=== PATIENT | female | born 1950 | race Caucasian/White ===

== ENCOUNTER → 2020-04-11 16:59 | Outpatient (CLI) | payer BC, SELFPAY ==
--- NOTE | ~2020-04-11 | MM_ITS ---
EXAMINATION: MM screening [facility] BI w daryl HISTORY: Screening mammogram TECHNIQUE: Craniocaudal and mediolateral oblique 3-D tomosynthesis images were obtained and synthetic 2-D images were generated. Bilateral rotated lateral cc views. CAD analysis was submitted and interp reted. COMPARISON: 06/24/2010, 06/08/2009 bilateral digital screening mammogram examinations BREAST PARENCHYMAL COMPOSITION: There are scattered areas of fibroglandular density. FINDINGS: Numerous benign microcalcifications are scattered in both breasts. There is no evidence of suspicious mass, calcification, or architectural distortion to suggest malignancy in either breast. T here has been no suspicious interval change. IMPRESSION: 1. No mammographic evidence of malignancy. 2. Recommend routine screening mammography in one year. BI-RADS Category 2: Benign finding(s). Reviewed, dictated and finalized at location A. GER LEAN
== END ==
PROVIDERS: PCP Nurse Practitioner Family; Visit Provider Nurse Practitioner Family
DX: Z12.31 Encounter for screening mammogram for malignant neoplasm of breast (principal)
CPT/HCPCS: 77063; 77067

== ENCOUNTER → 2020-09-09 17:36 | Outpatient (CLI) | payer BC, SELFPAY ==
--- NOTE | ~2020-09-09 | DEXA_ITS ---
Bone Density Report Name: Lucia Tomlin Age: 69 Sex: Female Ethnicity: White Date of : 1950 Indication: postmenopausal osteoporosis; height loss; Referring Provider: Sarah, Edison Lee Study: Bone densitometry was performed. Exam Date: September 09, 2020 Accession number: [id number] Bone Density: Region BMD T-score Z-score Classification AP Spine (L1-L4) 0.637 -3.7 -1.8 Osteoporosis Femoral Neck (Left) 0.387 -4.2 -2.5 Osteoporosis Total Hip (Left) 0.407 -4.4 -3.0 Osteoporosis Femoral Neck (Right) 0.522 -2.9 -1.3 Osteoporosis Total Hip (Right) 0.560 -3.1 -1.7 Osteoporosis Total Hip Mean 0.484 -3.8 -2.4 Osteoporosis World Health Organization criteria for BMD impression classify patients as: Normal (T-score at or above -1.0), Osteopenia (T-score between -1.0 and -2.5), or Osteoporosis (T-score at or below -2.5). 10-year Fracture Risk: FRAX not reported because: Some T-score for Spine Total or Hip Total or Femoral Neck at or below -2.5 Previous Exams: Region Exam Age BMD T-score BMD Change BMD Change Date g/cm2 vs Baseline vs Previous AP Spine(L1-L4) 09/09/2020 69 0.637 -3.7 -0.161* -0.016 08/03/2017 66 0.653 -3.6 -0.145* -0.035* 12/28/2014 64 0.688 -3.3 -0.110* -0.024* 03/15/2011 60 0.712 -3.0 -0.086* -0.041* 07/08/2009 58 0.753 -2.7 -0.045* -0.045* 02/06/2007 56 0.798 -2.3 Total Hip(Left) 09/09/2020 69 0.407 -4.4 -0.239* -0.115* 08/03/2017 66 0.523 -3.4 -0.123* -0.046* 12/28/2014 64 0.568 -3.1 -0.078* -0.037* 03/15/2011 60 0.606 -2.8 -0.041* -0.041* 02/06/2007 56 0.646 -2.4 Total Hip(Right) 09/09/2020 69 0.560 -3.1 -0.156* -0.042* 08/03/2017 66 0.602 -2.8 -0.114* -0.094* 12/28/2014 64 0.696 -2.0 -0.020 0.024 03/15/2011 60 0.672 -2.2 -0.044* -0.044* 02/06/2007 56 0.716 -1.9 *Denotes significance at 95% confidence level, LSC for AP Spine = 0.022 g/cm2, LSC for Total Hip = 0.027 g/cm2 Clinical Information Provided by Patient: Has used the following medications: Vitamin D, MTV Patient maximum height was 67.5 Menopause Age: 56 No regular weight bearing exercise Drinks caffeinated beverages Onset of menses at age 14 Number of children 4 Impression: The patient has
== END ==
PROVIDERS: PCP Nurse Practitioner Family; Visit Provider Chiropractor
DX: M81.0 Age-related osteoporosis without current pathological fracture (principal)
CPT/HCPCS: 77080

== ENCOUNTER 2023-02-18 19:17 | Emergency (ER) | payer MEDICARE, SELFPAY ==
[2023-02-18 19:20] VITALS: BP 159/84; PULSE 88; RESP 17; TEMP 36.6; O2SAT 99
--- NOTE | 2023-02-18 19:37 | ECG_ITS ---
Measurements Intervals [place] Rate: 72 P: 4 TN: 112 QRS: 75 QRSD: 74 T: 78 QT: 368 QTc: 404 Interpretive Statements SINUS RHYTHM WITH SHORT TN INTERVAL NO PREVIOUS ECG AVAILABLE FOR COMPARISON Electronically Signed On 02-19-2023 15:56:07 CDT by Gaudencio Swanson M.D.
[2023-02-18 20:10] LABS: Basophils Percent Auto 0.4 % (0.2-1.2); Eosinophils Absolute Auto 0.1 K/mm3 (0-0.3); Eosinophils Percent Auto 1.6 % (0-4.4); Hematocrit 36.5 % (37.0-47.0); Immature Platelet Fraction Pct 8.4 % (0.9-11.2); Mean Corpuscular HGB Conc 32.9 g/dl (32-36); Mean Corpuscular Hemoglobin 30.9 pg (26-34); Mean Corpuscular Volume 94.1 fl (80-100); Mean Platelet Volume 11.9 fl (7.4-10.4); Monocytes Absolute Auto 0.4 K/mm3 (0.1-0.6); Neutrophils Absolute Auto 3.1 K/mm3 (1.3-6.7); Platelet Count Result 135 k/mm3 (150-375); Red Blood Count 3.88 M/mm3 (4.2-5.4); Red Cell Distribution Width 13.2 % (11.5-14.5); White Blood Count 4.5 K/mm3 (4.5-10.0)
[2023-02-18 20:20] LABS: Alanine Aminotransferase 27 U/L (6-35); Albumin Level 4.2 g/dL (3.5-5.1); Alkaline Phosphatase 55 U/L (38-126); Anion Gap 6 mmol/L (8-16); Aspartate Amino Transferase 36 U/L (14-36); Bilirubin,Total 0.5 mg/dL (0.2-1.3); Blood Urea Nitrogen 15 mg/dL (7-17); Calcium 9.1 mg/dL (8.4-10.2); Carbon Dioxide 27 mmol/L (22-30); Chloride 102 mmol/L (98-107); Estimated CRCL calculation 58 ml/min; Estimated Glomerular Filt Rate > 60; Glucose 91 mg/dL (65-110); Potassium 3.6 mmol/L (3.4-5.0); Sodium 135 mmol/L (137-145)
[2023-02-18 20:30] LABS: Appearance Urine Clear (Clear); Bilirubin Urine Negative (Negative); Blood Urine Negative (Negative); Color Urine Yellow (Yellow); Glucose Urine UA Negative (Negative); Ketones Urine Negative (Negative); Leukocyte Esterase Ur 1+ LEU/UL (Negative); Nitrate Urine Negative (Negative); Protein Urine Negative (Negative); Specific Grav Ur 1.015 (1.001-1.035); Urobilinogen Urine 0.2 mg/dL (<2.0)
[2023-02-18 20:32] LABS: Troponin I < 0.012 ng/mL (0.000-0.034)
[2023-02-18 20:36] LABS: Bacteria Urine None Seen /hpf; Non Pathogenic Casts 0-2; RBC Urine 0-2 /hpf (0-2); Squamous Epithelial Cell Urine None seen /hpf (Few)
[2023-02-18 20:39] LABS: Add Urine Microscopic? YES
--- NOTE | 2023-02-18 20:51 | ED.GENADULT ---
HPI - General Adult General Chief complaint: Recheck/Abnormal Lab/Rx Stated complaint: htn Time Seen by Provider: 02/18/23 19:31 History of Present Illness HPI narrative: Patient presents to the emergency department with concern for her blood pressure. She has not seen her primary care doctor in 3 years. Prior to that she did not have hypertension. A [facility] home check saw her couple weeks ago and told her that her blood pressure was low. She believes her systolic was 105. Since then she has been checking it. The past couple days it has been elevated up to 180 systolic. She has an appointment with her primary care physician in the morning. Denies all other symptoms including vision changes headache confusion. Overall she is healthy except for a diagnosis of Raynaud's and bilateral lower extremity edema that is chronic. Patient is very pleasant and in no distress Related Data Allergies Allergy/AdvReac Type Severity Reaction Status Date / Time No Known Drug Allergies Allergy Unknown Verified 12/13/09 14:22 Review of Systems Review of Systems: Review of systems negative except for what is documented in the HPI Exam Narrative: GENERAL: Well-appearing, well-nourished, and in no acute distress. HEAD: Normocephalic, atraumatic. EYES: PERRLA and EOMI. ENT: Nares clear, no rhinorrhea or epistaxis. Mucous membranes moist. NECK: Supple. CHEST: Clear to auscultation. No respiratory distress. HEART: Regular rate and rhythm. ABDOMEN: Soft, nontender, nondistended. EXTREMITIES: Normal range of motion. No edema. SKIN: Warm, dry, no rash. NEURO: No focal deficits. Alert and oriented x3. PSYCH: Normal mood and affect. Course Vital Signs Vital signs: Vital Signs Temperature 36.6 C 02/18/23 19:20 Pulse Rate 88 02/18/23 19:20 Respiratory Rate 17 02/18/23 19:20 Blood Pressure 159/84 H 02/18/23 19:20 Pulse Oximetry 99 02/18/23 19:20 Oxygen Delivery Room Air 02/18/23 19:20 Temperature 36.6 C 02/18/23 19:20 Pulse Rate 88 02/18/23 19:20 Respiratory Rate 17 02/18/23 19:20 Blood Pressure 159/84 H 02/18/23 19:20 Pulse Oximetry 99 02/18/23 19:20 Oxygen Delivery Room Air 02/18/23 19:20 Medical Decision Making MDM Narrative Medical decision making narrative: Blood pressures have been slightly elevated but not high enough to start her on any antihypertensive medication. She has an appointment with her primary care in the morning. Labs including CMP troponin and CBC were ordered, evaluated by myself and grossly unremarkable. EKG ordered and reviewed by myself. Sinus rhythm rate 72 no signs of acute ischemia Vital Signs Vital Signs: Vital Signs Temperature 36.6 C 02/18/23 19:20 Pulse Rate 88 02/18/23 19:20 Respiratory Rate 17 02/18/23 19:20 Blood Pressure 159/84 H 02/18/23 19:20 Pulse Oximetry 99 02/18/23 19:20 Oxygen Delivery Room Air 02/18/23 19:20 Temperature 36.6 C 02/18/23 19:20 Pulse Rate 88 02/18/23 19:20 Respiratory Rate 17 02/18/23 19:20 Blood Pressure 159/84 H 02/18/23 19:20 Pulse Oximetry 99 02/18/23 19:20 Oxygen Delivery Room Air 02/18/23 19:20 Lab Data 02/18/23 19:59 02/18/23 19:59 Labs: Lab Results 02/18/23 02/18/23 Range/Units 19:59 20:19 WBC 4.5 (4.5-10.0) K/mm3 RBC 3.88 L (4.2-5.4) M/mm3 Hgb 12.0 (12.0-15.0) g/dL Hct 36.5 L (37.0-47.0) % MCV 94.1 (80-100) fl MCH 30.9 (26-34) pg MCHC 32.9 (32-36) g/dl RDW 13.2 (11.5-14.5) % Plt Count 135 L (150-375) k/mm3 MPV 11.9 H (7.4-10.4) fl Immature Gran % (Auto) 0.0 (0-0.5) % Neut % (Auto) 70.0 (45.5-73.1) % Lymph % (Auto) 20.0 (18.3-44.2) % [place] % (Auto) 8.0 (2.6-8.5) % Eos % (Auto) 1.6 (0-4.4) % Baso % (Auto) 0.4 (0.2-1.2) % Lymph # (Auto) 0.90 (0.9-3.2) K/mm3 [place] # (Auto) 0.4 (0.1-0.6) K/mm3 Eos # (Auto) 0.1 (0-0.3) K/mm3 Baso # (Auto)
[2023-02-18 21:18] VITALS: BP 138/79; PULSE 73; RESP 20; O2SAT 99
== END 2023-02-18 21:20 | disposition home or self-care (01) ==
PROVIDERS: Emergency Provider Emergency Medicine; PCP Nurse Practitioner Family
DX: I10 Essential (primary) hypertension (principal); I73.00 Raynaud's syndrome without gangrene; R60.0 Localized edema; R82.90 Unspecified abnormal findings in urine
CPT/HCPCS: 36415; 80053; 81001; 84484; 85025; 85055; 87086; 93005; 99284

== ENCOUNTER 2023-07-03 09:05 | Day surgery (SDC) | payer MEDICARE, SELFPAY ==
[2023-05-27 11:13] VITALS: BMI 16.9
[2023-06-12 13:28] VITALS: BMI 16.9
--- NOTE | 2023-07-03 08:03 | WPDANESEPPF ---
Anes - Initial Pre Proc Eval Procedure: Operation Date: 07/03/23 11:00 Proposed Procedures p Screening Colonoscopy - Gil Gonzalez MD Date/Time: 07/03/23 08:03 Surgeon: Gil Gonzalez MD Pre Op Diagnosis: Screening of Neoplasm of Colon Patient Data Age: 72 Gender: F Height: 1.68 m Weight: 47.6 kg Allergies Allergy/AdvReac Type Severity Reaction Status Date / Time No Known Allergies Allergy Verified 07/03/23 09:35 Home Medications Medication Instructions Recorded Confirmed Type B Complex 1 tablet PO DAILY 06/12/23 07/03/23 History Biostress 600 with Zinc 1 tablet PO DAILY 06/12/23 07/03/23 History Eye-Vites 1 tablet PO DAILY 06/12/23 07/03/23 History Iron (ferrous sulfate) 1 tablet PO DAILY 06/12/23 07/03/23 History cholecalciferol (vitamin D3) 1 tablet PO DAILY 06/12/23 07/03/23 History Patient hx anesthesia problems: none Family hx anesthesia problems: none Results Review: All pre-operative results and documents have been reviewed as part of the pre-operative evaluation. [facility] Past Medical History Medical History (Updated 07/03/23 @ 10:08 by Gil Gonzalez MD) Glaucoma Hx of melanoma of skin Osteoporosis Raynaud disease Social History Social History Living arrangements: alone Spiritual care concerns: No Anes - Eval Final PreProcedure Day of Procedure 07/03/23 08:03 Patient weight: normal Heart: regular rate and rhythm Lungs: clear to auscultation and normal air movement Airway: Mallampati scale class II Neurological: alert and oriented Last oral intake: >/= 8 hours ASA classification: II Emergent: no Anesthetic plan: proceed Anesthesia type and monitoring: general GIVS and standard monitoring Results Review: All pre-operative results and documents have been reviewed as part of the pre-operative evaluation. Informed Consent: The patient's anesthetic plan and its attendant risks and benefits were discussed with the patient/family/POA. Questions were solicited and answers provided to the satisfaction of the patient/family/POA.
[2023-07-03 09:37] VITALS: BP 142/78; PULSE 81; RESP 20; TEMP 37.2; O2SAT 100; BMI 16.7
[2023-07-03] MEDS: LACTATED RINGERS 1,000 ML 150 ML IV CONT (10:06)
--- NOTE | 2023-07-03 10:06 | PM.HPGS ---
History of Present Illness History of Present Illness Consent: Risks, benefits, and alternatives have been discussed and questions answered. Patient agrees to proceed with procedure. Chief complaint: Screening of Neoplasm of Colon Narrative: Lucia Tomlin is a 72 year old female presents for screening colonoscopy. Patient was found to have a benign adenomatous colon polyp by previous colonoscopy in 2009. Performed [address] Garcia. Patient reports that her current weight appetite and bowel movements are normal. She denies abdominal pain. She has had no bleeding. Patient returns today for screening colonoscopy. Review of Systems Review of Systems: Review of systems is noncontributory. [facility] Past Medical History Medical History (Updated 07/03/23 @ 10:08 by Gil Gonzalez MD) Glaucoma Hx of melanoma of skin Osteoporosis Raynaud disease Social History Social History Living arrangements: alone Spiritual care concerns: No Meds Home Medications and Allergies Home Medications Medication Instructions Recorded Confirmed Type B Complex 1 tablet PO DAILY 06/12/23 07/03/23 History Biostress 600 with Zinc 1 tablet PO DAILY 06/12/23 07/03/23 History Eye-Vites 1 tablet PO DAILY 06/12/23 07/03/23 History Iron (ferrous sulfate) 1 tablet PO DAILY 06/12/23 07/03/23 History cholecalciferol (vitamin D3) 1 tablet PO DAILY 06/12/23 07/03/23 History Allergies Allergy/AdvReac Type Severity Reaction Status Date / Time No Known Allergies Allergy Verified 07/03/23 09:35 Vital Signs Vital Signs - 24 hr 07/03/23 09:37 Temperature 99 F Pulse Rate 81 Respiratory Rate 20 Blood Pressure 142/78 H Pulse Oximetry 100 Oxygen Delivery Room Air Exam Narrative: Physical exam reveals patient to be alert. Vital signs stable. HEENT exam is unremarkable. Patient is anicteric. Lungs are clear to auscultation and to percussion. Is without murmur or extra sounds. Abdomen bowel sounds are present soft nontender with no organomegaly. Digital external rectal exam is normal. Assessment and Plan Assessment and plan (1) History of colon polyps: Code(s): Z86.010 - Personal history of colonic polyps Status: Acute Assessment and Plan: Presents for screening colonoscopy. She does have a distant history of benign colon polyp.
[2023-07-03 10:57] VITALS: BP 97/58; PULSE 82; RESP 20; O2SAT 98
[2023-07-03 11:07] VITALS: BP 128/78; PULSE 70; RESP 20; O2SAT 100
[2023-07-03 11:17] VITALS: BP 133/69; PULSE 78; RESP 20; O2SAT 100
--- NOTE | 2023-07-03 12:30 | SUR.PHASEII ---
1135 [facility]
--- NOTE | 2023-07-03 13:21 | WPDANESPN ---
Anes - Prog Note Post-Op Date/Time: 07/03/23 13:21 Cardiovascular status: normal Respiratory status: normal Airway patency: baseline Mental status: baseline Post-Op hydration status: normal Vital Signs: Last Vital Signs Temp 37.2 C 07/03/23 09:37 Pulse 78 07/03/23 11:17 Resp 20 07/03/23 11:17 BP 133/69 07/03/23 11:17 Pulse Ox 100 07/03/23 11:17 O2 Del Method Room Air 07/03/23 11:17 Pain Score (VAS): 0 I/O: Intake & Output 07/02/23 07/03/23 07/03/23 23:59 07:59 15:59 Intake Total 700 Balance 700 Post-procedural complaints: none Patient Feedback: Patient satisfied with anesthetic care. Other Findings: Patient vital signs back to baseline. Patient denies nausea and vomiting. Patient's pain under control. Patient OK for discharge.
== END 2023-07-03 12:07 | disposition home or self-care (01) ==
PROVIDERS: PCP Family Medicine; Visit Provider Internal Medicine Gastroenterology
PROC: 0DJD8ZZ Inspection of Lower Intestinal Tract, Via Natural or Artificial Opening Endoscopic (ICD-10-PCS; CPT 45378; principal; 2023-07-03 11:00)
DX: Z12.11 Encounter for screening for malignant neoplasm of colon (principal)
CPT/HCPCS: 45378

== ENCOUNTER 2023-08-10 08:53 | Outpatient (CLI) | payer MEDICARE, SELFPAY ==
--- NOTE | ~2023-08-10 | MM_ITS ---
EXAMINATION: MM screening [facility] BI w daryl HISTORY: Screening TECHNIQUE: Craniocaudal and mediolateral oblique 3-D tomosynthesis images were obtained and synthetic 2-D images were generated. CAD analysis was submitted and interpreted. COMPARISON: Comparison to multiple prior studies sequentially, with oldest reviewed study dated 06/24. BREAST PARENCHYMAL COMPOSITION: Not dense: There are scattered areas of fibroglandular density. FINDINGS: There is no evidence of suspicious mass, calcification, or architectural distortion to sugg est malignancy in either breast. There has been no suspicious interval change. IMPRESSION: 1. No mammographic evidence of malignancy. 2. Recommend routine screening mammography in one year. BI-RADS Category 1: Negative Reviewed, dictated and finalized at location A.
== END 2023-08-10 08:54 ==
LOC: MICIMG 08:58
PROVIDERS: PCP Chiropractor; Visit Provider Family Medicine
DX: Z12.31 Encounter for screening mammogram for malignant neoplasm of breast (principal)
CPT/HCPCS: 77063; 77067

== ENCOUNTER 2023-08-21 07:45 | Outpatient (CLI) | payer MEDICARE, SELFPAY ==
--- NOTE | ~2023-08-21 | DEXA_ITS ---
Bone Density Report Name: SOPHIE ALLEN Age: 72 Sex: Female Ethnicity: White Date of : 1950 Indication: postmenopausal; screening for osteoporosis; height loss; cancer; Referring Provider: BETTY, KRISTINE Marlow Study: Bone densitometry was performed. Exam Date: August 21, 2023 Accession number: [id number] Bone Density: Region BMD T-score Z-score Classification AP Spine(L1-L4) 0.581 -4.2 -2.1 Osteoporosis Femoral Neck (Left) 0.413 -3.9 -2.1 Osteoporosis Total Hip (Left) 0.478 -3.8 -2.3 Osteoporosis Femoral Neck (Right) 0.525 -2.9 -1.1 Osteoporosis Total Hip (Right) 0.552 -3.2 -1.6 Osteoporosis Total Hip Mean 0.515 -3.5 -2.0 Osteoporosis World Health Organization criteria for BMD impression classify patients as: Normal (T-score at or above -1.0), Osteopenia (T-score between -1.0 and -2.5), or Osteoporosis (T-score at or below -2.5). 10-year Fracture Risk: FRAX not reported because: Some T-score for Spine Total or Hip Total or Femoral Neck at or below -2.5 Clinical Information Provided by Patient: Has used the following medications: Vitamin D, MULTI Has the following medical conditions: Cancer Patient maximum height was 67.5 Menopause Age: 54 No regular weight bearing exercise Drinks caffeinated beverages Onset of menses at age 14 Number of children 4 Impression: The patient has osteoporosis, based on the Total Spine T-score. Discussion: HIGH RISK OF FRACTURE. BONE DENSITY IS UNDESIRABLY LOW AT ONE OR MORE SKELETAL SITES, CONSISTENT WITH OSTEOPOROSIS. ALSO, BONE DENSITY IS LOWER THAN EXPECTED FOR AGE AND SEX AT ONE OR MORE SKELETAL SITES; RECOMMEND A DILIGENT SEARCH FOR SECONDARY CAUSES OF BONE LOSS. This patient's lowest T-score meets the World Health Organization's (WHO) criteria for osteoporosis at one or more sites (T-score -2.5 or below). In untreated patients, the risk of osteoporotic fracture increases approximately two-fold for each 1.0 SD decrease in T-score. Low bone density is not the only risk factor for fracture; also consider factors such as patient's age, frailty or poor health, risk of falling, risk of injury, previous osteoporotic fracture, family history of osteoporosis, cigarette smoking, low body weight, etc. Not everyone with low bone mineral density has osteoporosis; osteomalacia and other metabolic bone disorders should also be considered. Patients who have osteoporosis should be evaluated for specific diseases and conditions (secondary causes) that may cause or contribute to bone loss. The [place] [employer]ocrinologists (AACE) and National Osteoporosis Foundation (NOF) recommend pharmacologic intervention for all postmenopausal women whose T-score is in this range. Also, this patient's bone mineral density is below the range considered normal fo
== END 2023-08-21 07:46 | disposition home or self-care (01) ==
PROVIDERS: PCP Chiropractor; Visit Provider Family Medicine
DX: M81.0 Age-related osteoporosis without current pathological fracture (principal)
CPT/HCPCS: 77080

== ENCOUNTER 2024-09-26 10:27 | Outpatient (CLI) | payer MEDICARE, SELFPAY ==
--- NOTE | ~2024-09-26 | MM_ITS ---
EXAMINATION: MM screening buzz BI w daryl HISTORY: Screening TECHNIQUE: Craniocaudal and mediolateral oblique 3-D tomosynthesis images were obtained and synthetic 2-D images were generated. CAD analysis was submitted and interpreted. COMPARISON: Comparison to multiple prior studies sequentially, with oldest reviewed study dated 03/15. BREAST PARENCHYMAL COMPOSITION: Dense: The breasts are heterogeneously dense, which may obscure small masses FINDINGS: There is no evidence of suspicious mass, calcification, or architectural distortion to sugg est malignancy in either breast. There has been no suspicious interval change. IMPRESSION: 1. No mammographic evidence of malignancy. 2. Recommend routine screening mammography in one year. BI-RADS Category 1: Negative Reviewed, dictated and finalized at location B.
--- OUTSIDE RECORDS SUMMARY | 2024-09-26 10:32 | XMS_ITS | Data Portability ---
Author Organization [facility] [employer], Main Office Address [address] [place] [address] Assessment No assessment recorded. Plan of Treatment Reminders Order Date Submit Date Provider Last Modified By Organization Details Last Modified Time Details Appointments None recorded. Lab TSH, serum or plasma 2022 023 [email or web address] [facility] (Lab), [address] [place], [address], 09:43:34 lipid panel, serum 2022 023 JOSE ARMANDO [facility] (Lab), [address] [place], [address], 09:13:53 urinalysis, complete 2022 023 [facility] (Lab), [address] [place], [address], 09:44:09 HbA1c (hemoglobin A1c), blood 2022 023 [facility] (Lab), [address] [place], [address], 09:44:27 CMP, serum or plasma 2022 023 [email or web address] [facility] (Lab), [address] [place], [address], 09:44:42 CBC 2022 023 [email or web address] [facility] (Lab), [address] [place], [address], 09:45:01 Referral gastroenter ologist referral - due for colonscopy Please call patient to schedule appointment . [email or web address] [facility], [address], [address], [place], [address], 4 16:08:04 Procedures None recorded. Surgeries None recorded. Imaging DEXA - *please call pt to schedule* [address] (Imaging), [address], [place], [address], 3 09:19:55 MAMMO, screening, digital, bilateral - *Please call pt to schedule* [address] - Breast Ctr, [address], [facility] [address], [place], [address], 3 09:19:32 Medication Orders None recorded. Patient TargetsNo targets recorded. Patient Instructions Encounter Date Encounter Id Patient Instructions Last Modified By Organization Details Last Modified Time 03/12/2023 [id number] fall risk assessment* Not available 03/28/2023 16:09:56 Reason for Referral Nurse Assistant Referral for Screening for malignant neoplasm of colon due for colonscopy Please call patient to schedule appointment. Referring Physician: Jaya Brito, Family Medicine, Encounter Date: 03/12/2023 Results Created Date Observation Date Name Description Value Unit Range Abnormal Flag Note LastModifiedBy Organization Detail LastModifiedTime 03/12/20 23 03/13/2023 COMP. METAB OLIC PANEL (14) glucose 94 mg/dL 70-99 Not Available [facility] ([facility]) [address] [facility], [place], [address], 03/13/2023 09:13:51 03/12/20 23 03/13/2023 COMP. METAB OLIC PANEL (14) BUN 13 mg/dL 8-27 Not Available [facility] ([facility]) [address] [facility] [place], [address], 03/13/2023 09:13:51 03/12/20 23 03/13/2023 COMP. METAB OLIC PANEL (14) creatinine 0.64 mg/dL 0.57-1 .00 Not Available [facility] ([facility]) [address] [facility], [place], [address], 03/13/2023 09:13:51 03/12/2003/13/2023 COMP. METAB OLIC PANEL (14) eGFR 95 mL/mi n/1.7 3 >59 Not Available [facility] ([facility]) [address] [facility], [place], [address], 03/13/2023 09:13:51 03/12/20 23 03/13/2023 COMP. METAB OLIC PANEL (14) BUN/creatini ne ratio 20 12-28 Not Available [facility] ([facility]) [address] [facility], [place], [address], 03/13/2023 09:13:51 03/12/20 23 03/13/2023 COMP. METAB OLIC PANEL (14) sodium 140 mmol/ L 134-14 4 Not Available [facility] ([facility]) [address] [facility], [place], [address], 03/13/2023 09:13:51 03/12/20 23 03/13/2023 COMP. METAB OLIC PANEL (14) potassium 4.1 mmol/ L 3.5-5. 2 Not Available [facility] ([facility]) [address] [facility], [place], [address], 03/13/2023 09:13:51 03/12/20 23 03/13/2023 COMP. METAB OLIC PANEL (14) chloride 100 mmol/ L 96-106 Not Available [facility] ([facility]) [address] [place], [place], [id number], 03/13/2023 09:13:51 03/12/20 23 03/13/2023 COMP. METAB OLIC PANEL (14) carbon dioxide, total 31 mmol/ L 20-29 above high normal Not Available [facility] ([facility]) [address] [place], [id number], 03/13/2023 09:13:51 03/12/20 23 03/13/2023 COMP. METAB OLIC PANEL (14) calcium 9.6 mg/dL 8.7-10 .3 Not Available [facility] ([facility]) [address] [place], [id number], 03/13/2023 09:13:51 03/12/20 23 03/13/2023 COMP. METAB OLIC PANEL (14) protein, total 6.9 g/dL 6.0-8. 5 Not Available [facility] ([facility]) [address] [place], [id number], 03/13/2023 09:13:51 03/12/20 23 03/13/2023 COMP. METAB OLIC PANEL (14) albumin 4.6 g/dL 3.9-4. 9 Not Available [facility] ([facility]) [address] [place], [id number], 03/13/2023 09:13:51 03/12/20 23 03/13/2023 COMP. METAB OLIC PANEL (14) globulin, total 2.3 g/dL 1.5-4. 5 Not Available [facility] ([facility]) [address] [place], [id number], 03/13/2023 09:13:51 03/12/20 23 03/13/2023 COMP. METAB OLIC PANEL (14) A/G ratio 2.0 1.2-2. 2 Not Available [facility] ([facility]) [address] [place], [id number], 03/13/2023 09:13:51 03/12/2003/13/2023 COMP. METAB OLIC PANEL (14) bilirubin, total 0.4 mg/dL 0.0-1. 2 Not Available [facility] ([facility]) [address] [place], [address], 03/13/2023 09:13:51 03/12/20 23 03/13/2023 COMP. METAB OLIC PANEL (14) alkaline phosphatase 62 IU/L 44-121 Not Available [facility]) [address], [place], [address], 03/13/2023 09:13:51 03/12/20 23 03/13/2023 COMP. METAB OLIC PANEL (14) AST (SGOT) 25 IU/L 0-40 Not Available [facility] ([facility]) [address] [place], [place], [id number], 03/13/2023 09:13:51 03/12/2003/13/2023 COMP. METAB OLIC PANEL (14) ALT (SGPT) 21 IU/L 0-32 Not Available [facility] ([facility]) [address] [place], [id number], 03/13/2023 09:13:51 03/12/2003/13/2023 UA/M W/RFL X CULTU RE, ROUTI NE specific gravity 1.013 1.005- 1.030 Not Available [facility] ([facility]) [address] [place], [id number], 03/13/2023 09:13:52 03/12/2003/13/2023 UA/M W/RFL X CULTU RE, ROUTI NE pH 6.5 5.0-7. 5 Not Available [facility] ([facility]) [address] [place], [id number], 03/13/2023 09:13:52 03/12/2003/13/2023 UA/M W/RFL X CULTU RE ROUTI NE urine-color Yellow yellow Not Available [facility] ([facility]) [address] [facility], [place], [address], 03/13/2023 09:13:52 03/12/2003/13/2023 UA/M W/RFL X CULTU RE, ROUTI NE appearance Clear clear Not Available [facility] ([facility]) [address] [facility], [place], [address], 03/13/2023 09:13:52 03/12/2003/13/2023 UA/M W/RFL X CULTU RE, ROUTI NE WBC esterase Negati ve negati ve Not Available [facility] ([facility]) [address] [facility], [place], [address], 03/13/2023 09:13:52 03/12/2003/13/2023 UA/M W/RFL X CULTU RE ROUTI NE protein Negati ve negati ve/tra ce Not Available [facility] ([facility]) [address] [facility], [place], [address], 03/13/2023 09:13:52 03/12/2003/13/2023 UA/M W/RFL X CULTU RE ROUTI NE glucose Negati ve negati ve Not Available [facility] ([facility]) [address] [place], [address], 03/13/2023 09:13:52 03/12/2003/13/2023 UA/M W/RFL X CULTU RE, ROUTI NE ketones Negati ve negati ve Not Available [facility] ([facility]) [address] [place], [address], 03/13/2023 09:13:52 03/12/2003/13/2023 UA/M W/RFL X CULTU RE, ROUTI NE occult blood Negati ve negati ve Not Available [facility] ([facility]) [address] [facility], [place], [address], 03/13/2023 09:13:52 03/12/2003/13/2023 UA/M W/RFL X CULTU RE, ROUTI NE bilirubin Negati ve negati ve Not Available [facility] ([facility]) [address] [facility], [place], [address], 03/13/2023 09:13:52 03/12/2003/13/2023 UA/M W/RFL X CULTU RE, ROUTI NE urobilinogen ,semi-qn 0.2 mg/dL 0.2-1. 0 Not Available [facility] ([facility]) [address] [facility], [place], [address], 03/13/2023 09:13:52 03/12/2003/13/2023 UA/M W/RFL X CULTU RE, ROUTI NE nitrite, urine Negati ve negati ve Not Available [facility] ([facility]) [address] [facility], [place], [address], 03/13/2023 09:13:52 03/12/2003/13/2023 UA/M W/RFL X CULTU RE, ROUTI NE microscopic examination Commen t Micro scopi c follo ws if indic ated. Not Available [facility] ([facility]) [address] [facility], [place], [address], 03/13/2023 09:13:52 03/12/2003/13/2023 UA/M W/RFL X CULTU RE, ROUTI NE microscopic examination See below: Micro scopi c was indic ated and was perfo rmed. Not Available [facility] ([facility]) [address] [place], [address], 03/13/2023 09:13:52 03/12/2003/13/2023 UA/M W/RFL X CULTU RE, ROUTI NE WBC None seen /hpf 0 - 5 Not Available [facility] ([facility]) [address] [facility], [place], [address], 03/13/2023 09:13:52 03/12/2003/13/2023 UA/M W/RFL X CULTU RE, ROUTI NE RBC 0-2 /hpf 0 - 2 Not Available [facility] ([facility]) [address] [facility], [place], [address], 03/13/2023 09:13:52 03/12/2003/13/2023 UA/M W/RFL X CULTU RE, ROUTI NE epithelial cells (non renal) None seen /hpf 0 - 10 Not Available [facility] ([facility]) [address] [facility], [place], [address], 03/13/2023 09:13:52 03/12/2003/13/2023 UA/M W/RFL X CULTU RE, ROUTI NE epithelial cells (renal) GELATIN [employer] PACKING OPERATOR Not Available [facility] ([facility]) [address] [facility], [place], [address], 03/13/2023 09:13:52 03/12/2003/13/2023 UA/M W/RFL X CULTU RE, ROUTI NE casts None seen /lpf none seen Not Available [facility] ([facility]) [address] [facility], [place], [address], 03/13/2023 09:13:52 03/12/2003/13/2023 UA/M W/RFL X CULTU RE, ROUTI NE cast type GELATIN D[employer]NAM[employer] PACKING OPERATOR Not Available [facility] ([facility]) [address] [facility], [place], [address], 03/13/2023 09:13:52 03/12/2003/13/2023 UA/M W/RFL X CULTU RE, ROUTI NE crystals GELATIN DYNAMITE PACKING OPERATOR Not Available [facility] ([facility]) [address] [facility], [place], [address], 03/13/2023 09:13:52 03/12/2003/13/2023 UA/M W/RFL X CULTU RE, ROUTI NE crystal type GELATIN DYNAMITE PACKING OPERATOR Not Available [facility]) [address] [facility], [place], [address], 03/13/2023 09:13:52 03/12/2003/13/2023 UA/M W/RFL X CULTU RE, ROUTI NE mucus threads GELATIN [employer]NAM[employer] PACKING OPERATOR Not Available [facility] ([facility]) [address] [facility], [place], [address], 03/13/2023 09:13:52 03/12/2003/13/2023 UA/M W/RFL X CULTU RE, ROUTI NE bacteria None seen none seen/f ew Not Available [facility] ([facility]) [address] [facility], [place], [address], 03/13/2023 09:13:52 03/12/2003/13/2023 UA/M W/RFL X CULTU RE, ROUTI NE yeast [employer] OPERATOR Not Available [facility] ([facility]) [address] [facility], [place], [address], 03/13/2023 09:13:52 03/12/2003/13/2023 UA/M W/RFL X CULTU RE, ROUTI NE trichomonas G[employer]IN [employer] P[employer]ING OPERATOR Not Available [facility] ([facility]) [address] [facility], [place], [address], 03/13/2023 09:13:52 03/12/2003/13/2023 UA/M W/RFL X CULTU RE, ROUTI NE comment [employer] P[employer] OPERATOR Not Available [facility] ([facility]) [address] [facility], [place], [address], 03/13/2023 09:13:52 03/12/2003/13/2023 UA/M W/RFL X CULTU RE, ROUTI NE urinalysis reflex Commen t This speci men will not refle x to a Urine Cultu re. Not Available [facility] ([facility]) [address] [facility], [place], [address], 03/13/2023 09:13:52 03/12/2003/13/2023 CBC, NO DIFFE RENTI AL/PL ATELE T WBC 4.2 x10e3 /uL 3.4-10 .8 Not Available [facility] ([facility]) [address] [facility], [place], [address], 03/13/2023 09:13:52 03/12/2003/13/2023 CBC, NO DIFFE RENTI AL/PL ATELE T RBC 4.42 x10e6 /uL 3.77-5 .28 Not Available [facility] ([facility]) [address] [facility], [place], [address], 03/13/2023 09:13:52 03/12/2003/13/2023 CBC, NO DIFFE RENTI AL/PL ATELE T hemoglobin 13.5 g/dL 11.1-1 5.9 Not Available [facility] ([facility]) [address] [place], [address], 03/13/2023 09:13:52 03/12/2003/13/2023 CBC, NO DIFFE RENTI AL/PL ATELE T hematocrit 41.6 % 34.0-4 6.6 Not Available [facility] ([facility]) [address] [facility], [place], [address], 03/13/2023 09:13:52 03/12/20 23 03/13/2023 CBC, NO DIFFE RENTI AL/PL ATELE T MCV 94 fL 79-97 Not Available [facility] ([facility]) [address] [facility], [place], [address], 03/13/2023 09:13:52 03/12/2003/13/2023 CBC, NO DIFFE RENTI AL/PL ATELE T MCH 30.5 pg 26.6-3 3.0 Not Available [facility] ([facility]) [address] [facility], [place], [address], 03/13/2023 09:13:52 03/12/2003/13/2023 CBC, NO DIFFE RENTI AL/PL ATELE T MCHC 32.5 g/dL 31.5-3 5.7 Not Available [facility] ([facility]) [address] [facility], [place], [address], 03/13/2023 09:13:52 03/12/2003/13/2023 CBC, NO DIFFE RENTI AL/PL ATELE T RDW 12.8 % 11.7-1 5.4 Not Available [facility] ([facility]) [address] [facility], [place], [address], 03/13/2023 09:13:52 03/12/2003/13/2023 CBC, NO DIFFE RENTI AL/PL ATELE T NRBC GELATIN [employer] PACKING OPERATOR Not Available [facility] ([facility]) [address] [facility], [place], [address], 03/13/2023 09:13:52 03/12/2003/13/2023 LIPID PANEL cholesterol, total 247 mg/dL 100-19 9 above high normal Not Available [facility] ([facility]) [address] [facility] [place], [address], 03/13/2023 09:13:53 03/12/2003/13/2023 LIPID PANEL triglyceride s 77 mg/dL 0-149 Not Available [facility] ([facility]) [address] [place], [address], 03/13/2023 09:13:53 03/12/2003/13/2023 LIPID PANEL HDL cholesterol 97 mg/dL >39 Not Available [facility] ([facility]) [address] [place], [address], 03/13/2023 09:13:53 03/12/2003/13/2023 LIPID PANEL VLDL cholesterol hollis 13 mg/dL 5-40 Not Available [facility] ([facility]) [address] [place], [address], 03/13/2023 09:13:53 03/12/2003/13/2023 LIPID PANEL LDL chol calc ([facility]) 137 mg/dL 0-99 above high normal Not Available [facility] ([facility]) [address] [place], [address], 03/13/2023 09:13:53 03/12/2003/13/2023 LIPID PANEL comment: GELATIN DYNAMITE PACKING OPERATOR Not Available [facility] ([facility]) [address] [place], [address], 03/13/2023 09:13:53 03/12/2003/13/2023 TSH TSH 2.180 uIU/m L 0.450- 4.500 Not Available [facility] ([facility]) [address] [place], [address], 03/13/2023 09:13:54 03/12/2003/13/2023 HEMOG LOBIN A1C hemoglobin A1C 5.7 % 4.8-5. 6 above high normal Predi abete s: 5.7 - 6.4 Diabe lisa: >6.4 Glyce alcides contr ol for adult s with diabe lisa: <7.0 Not Available [facility] ([facility]) [address] [place], [address], 03/13/2023 09:13:55 10/09/20 23 01/30/2023 Perip heral Arter y Disea se (PAD) Self Asses sment Tool* No observ ation record ed. [email or web address] Not Available 2023 10:37:54 08/12/19 24 08/10/2023 MAMMO , scree denise, digit al, bilat eral No observ ation record ed. [facility] [address], [place], [address], 08/12/2023 20:14:00 08/15/19 24 08/10/2023 MAMMO , scree denise, digit al, bilat eral No observ ation record ed. [email or web address] [address], [place], [address], 09/28/2023 10:26:18 08/23/19 24 08/21/2023 DEXA No observ ation record ed. [place] [address], [place], [address], 10/01/2023 12:55:11 Result Notes None recorded. Problems Name Problem SNOMED Code Status Onset Date Resolution Date Notes Provider Name and Address Organization Details Recorded Time Edema of lower extremity 094259895 Active 2019 Not Available [facility] 3 22:06:44 Herpes labialis 1761806 Active 2019 Not Available [facility] 3 22:06:44 Osteoporosis 25974411 Active 2019 Not Available [facility] 3 22:06:44 Problem Notes None recorded. Procedures Surgical History Date Name Laterality Status Provider Name and Address Organization Details Recorded Time 4 Colonoscopy completed Honey Carlos RN [facility] [employer] 07/03/2023 12:15:48 mohs surgery completed NICOLE Merchant [address], [place], [address], [facility] [employer] 03/12/2023 09:18:26 Imaging Results Imaging Date Name Status LastModified by [facility] Details LastModified Time 01/30/2023 Peripheral Artery Disease (PAD) Self Assessment Tool* [place] [id number] Information not available 09/20/2023 10:37:54 08/10/2023 MAMMO, screening, digital, bilateral completed [facility] [address], [place], [address], 08/12/2023 20:14:00 08/10/2023 MAMMO, screening, digital, bilateral completed [address], [place], [address], 09/28/2023 10:26:18 08/21/2023 DEXA completed [address], [place], [address], 10/01/2023 12:55:11 Procedure Notes None recorded. Medical Equipment None Reported. Allergies No known drug allergies Medications Name Sig Start Date Stop Date Status Note LastModified by Organization Details LastModified Time valacyclovi r 500 mg tablet Take 2 tablets every 12 hours by oral route for 3 days. 03/12 completed Not Available Not Available Not Available cephalexin 500 mg capsule TAKE 1 CAPSULE BY MOUTH TWICE DAILY FOR 7 DAYS 03/12 completed Not Available Not Available Not Available L-Lysine 1,000 mg tablet Take by oral route. 2019 active Not Available Not Available Not Avai lable lutein 20 mg capsule Take by oral route. 2019 active Not Available Not Available Not Avai lable Sterling 3 2019 active 665mg Not Available Not Available Not Avai lable Super B Maxi Complex 2019 active [facility] brand Not Available Not Available Not Available Vitals Date Recorded Body weight Body mass index (BMI) Body height Provider Name and Address Organization Details Last Updated DateTime 03/12/2023 88180.38 g 17.3 kg/m2 167.64 cm NICOLE Merchant [address], [place], [address], [place] [facility] [employer] [facility] 03/12/2023 09:23:26 Date Recorded Body temperature Heart rate Oxygen saturation Oxygen saturation in Arterial blood by Pulse oximetry Systolic blood pressure Diastolic blood pressure Provider Name and Address Organization Details Last Updated DateTime 3 97.6 [degF] 71 /min 97 % 97 % 112 mm[Hg] 64 mm[Hg] Mary Jo Gonzales LPN [employer] 3 08:55:22 Social History None recorded. Functional Status None recorded. Mental Status None recorded. Family History Nothing Reported. Medical History No medical history recorded. Gynecological HistoryNo gynecological history recorded. Obstetrics History GPAL:G 0 P 0 0 0 0 Immunizations Vaccine Type Date Status Note Provider Nam e and Address Organization Details Recorded Time Influenza, high-dose, quadrivalent, PF 02/24/2020 completed Not Available [employer] 3 22:07:41 Influenza, high-dose, quadrivalent, PF 03/12/2023 completed NICOLE Merchant [address] [facility] [address], [place], [address], [employer] 03/12/2023 13:30:49 Past Encounters Encounter ID Performer Location Encounter Start Date Encounter Closed Date Diagnosis/Indication Diagnosis SNOMED-CT Code Diagnosis ICD10 Code Diagnosis Note [id number] Margie Aleman MD [facility] [address] [place] [address] 03/12/2023 08:44:49 03/12/2023 09:40:31 Screening mammography 13566911 Z12.31 [facility] th examination 849940852 Z13.29 Z13.220 Z13.89 Z13.1 Z00.01 Adult Health Exam--Due for routine labs (CBC, CMP, Lipids, HgA1C, TSH, UA).--Mamm ogram ordered--C olonoscopy due, GI referral generated. --Bone Density ordered--P AP/WWE-rec ommended. Pt to schedule-- Tdap recommende d q 10 years--Flu recommende d yearly-ord ered--COVI D-19 recommende d--Encoura ged yearly dental, vision, hearing screenings Osteoporosis 76497138 M8 1.0 You should repeat your bone density every 2 years. Your next bone density is due. Continue to take Calcium and vitamin D. Help prevent bone loss by avoiding smoking, and avoiding soda. You should do weight bearing exercise routinely and follow up as planned.Pt declines rx treatment at this time. Screening for malignant neoplasm of colon 781002982 Z12.11 Administra tion of influenza vaccine 13428650 Z23 Bereavement 85689232 Z63 .4 Matt stanton (04/11/23) Encouraged pt to consider counseling . Denies any SI/HI at this time. Pt declines medication at this time. Health Concerns Section Related Observation LastModified by Organization Detai ls LastModified Time None Recorded Concern Status LastModified by Organization Details LastModified Time None Recorded Advance Directives Directive None Recorded Payers Encounter Date Sequence Insurance Name Policy Number Policy Preciado Covered Member ID Preciado Member ID Guarantor Name 03/12/2023 1 [facility] [id number] Lucia Tomlin [id number] Lucia Tomlin Notes Date Note Type Note Provider Name and Address Organization Details Recorded Time 03/12/2023 text/html 1. Pt in office for annual well visit/physical. 2. Pt denies depression, but is grieving of last year. 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 Pt reports MOHs surgery in left eyebrow, right cheek, left ayers. Jaya Brito, [employer]ER [employer]ER [address] [facility], [facility] [address] [place], [address], [facility] [employer] 03/12/2023 13:33:06 OBGyn Episode No OBEpisode recorded.
--- OUTSIDE RECORDS SUMMARY | 2024-09-26 10:32 | XMS_ITS | Clinical Summary ---
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 01/28/2020 Active lysine 1,000 mg tablet Take by oral route. 01/28/2020 Active Active Problems No known active problems Immunizations Immunization Administration Dates Next Due Influenza, Quadrivalent, Hig h Dose, Preservative Free, Intrr 03/12/2023,02/24/2020 Influenza, Quadrivalent, Spl it, Preservative Free, Intramuscular 04/14/2022 Influenza, Unspecified 03/31/2024(Deferr ed: Patient Refused),05/13/2023(Deferred: Patient Refused) Social History Tobacco Use Types Packs/Day Years Used Date Smoking Tobacco: Never Smokeless Tobacco: Never Tobacco Cessation:Counseling Given: Not Answered PHQ-2 Answer Date Recorded PHQ-2 Total Score (If total score is 3 or more points, staff should administer the PHQ-9) 0 03/31/2024 Comments Unknown Sex and Gender Information Value Date Recorded Sex Assigned at Not on file Legal Sex Female 11:58 PM ROLLER STAINER Gender Identity Female 04/19/2024 6:31 PM ROLLER STAINER Sexual Orientation Straight 04/19/2024 6: 31 PM ROLLER STAINER Obstetrics History Last Filed Vital Signs Vital Sign Reading Time Taken Comments Blood Pressure 126/74 03/31/2024 9:24 AM ROLLER STAINER Pulse 68 03/31/2024 9:24 AM ROLLER STAINER Temperature 36.8 C (98.2 F) 03/31/2024 9:24 AM ROLLER STAINER Respiratory Rate - - Oxygen Saturation 98% 03/31/2024 9:24 AM ROLLER STAINER Inhaled Oxygen Concentration - - Weight 50.2 kg (110 lb 11.2 oz) 03/31/2024 9:24 AM ROLLER STAINER Height 167.6 cm (5' 6 ) 03/31/2024 9:24 AM ROLLER STAINER Body Mass Index 17.87 03/31/2024 9:24 AM ROLLER STAINER Plan of Treatment Health Maintenance Due Date Last Done Comments Breast Cancer Screening-Mammogram 1950 Colon Cancer Screening-Colonoscopy 1950 Hepatitis C Screening 1950 DTaP/Tdap/Td Vaccine (1 - Tdap) 09/19/1963 Hepatitis B Screening 1970 Pneumococcal vaccine 65+ (1 of 1 - PCV) 2002 Zoster Vaccine (1 of 2) 2002 Well Visit 65+ 2017 Covid-19 Vaccine (5 - 2023-2 5 season) 2024 04/27/2022, 04/21/2021, 08/28/2020, Additional history exists Influenza Vaccine (Season Ended) 2025 03/12/2023, 04/14/2022, 02/24/2020 Depression Screening 03/31/2025 03/31/2024 Fall Risk Assessment 03/31/2025 03/31/2024 Osteoporosis Screening-Bone Density Scan 08/20/2025 08/21/2023 Procedures Procedure Name Priority Date/Time Associated Diagnosis Comments DEXA SCAN Routine 08/21/2023 from Last 3 Months or Most Recently Relevant to Health Maintenance Results * DEXA SCAN (08/21/2023) us Historical Provider HEALTH MAINTENANCE Final Result from Last 3 Months or Most Recently Relevant to Health Maintenance Insurance [facility] MEDICARE ADVANTAGE [facility] MEDICARE ADVANTAGE Care Teams 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
--- OUTSIDE RECORDS SUMMARY | 2024-09-26 10:32 | XMS_ITS | Clinical Summary ---
Author Organization [facility] Address [address] [place] [id number] Care Team Providers Care Hotel Receptionist Name Role Phone Unavailable Primary Care Provider Unavailabl e Social History Tobacco Use Types Packs/Day Years Used Date Smoking Tobacco: Never Assessed Comments Unknown Sex and Gender Information Value Date Recorded Sex Assigned at Not on file Legal Sex Female 9:28 PM CDT Gender Identity Not on file Sexual Orientation Not on file Plan of Treatment Health Maintenance Due Date Last Done Comments Colorectal Cancer Screening Colonoscopy (10 Years) 1952 Hepatitis C 1970 DTaP, Tdap and Td Vaccines ( 1 - Tdap) 09/19/1971 Mammogram Screening 1992 Pneumococcal Vaccine: 50+ Ye ars (1 of 1 - PCV) 2002 Zoster Vaccines (1 of 2) 2002 Dexa Scan (General) 2017 COVID-19 Vaccine (2023-2 5 season) 2024 RSV Immunization or 60+ Years (1 - 1-dose 75+ series) 09/19/2027 Meningococcal B Vaccine Aged Out No l onger eligible based on patient's age to complete this topic Meningococcal Vaccine Aged Out No hi regina eligible based on patient's age to complete this topic RSV Immunizations Under 20 Months Aged Out No longer eligible based on patient's age to complete this topic
--- OUTSIDE RECORDS SUMMARY | 2024-09-26 10:32 | XMS_ITS | Referral Summary ---
Author Organization 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 Gender Identity Female 04/19/2024 6:31 PM COMMERCIAL LITIGATION ATTORNEY Sexual Orientation Straight 04/19/2024 6: 31 PM COMMERCIAL LITIGATION ATTORNEY Last Filed Vital Signs Vital Sign Reading Time Taken Comments Blood Pressure 126/74 03/31/2024 9:24 AM COMMERCIAL LITIGATION ATTORNEY Pulse 68 03/31/2024 9:24 AM COMMERCIAL LITIGATION ATTORNEY Temperature 36.8 C (98.2 F) 03/31/2024 9:24 AM COMMERCIAL LITIGATION ATTORNEY Respiratory Rate - - Oxygen Saturation 98% 03/31/2024 9:24 AM COMMERCIAL LITIGATION ATTORNEY Inhaled Oxygen Concentration - - Weight 50.2 kg (110 lb 11.2 oz) 03/31/2024 9:24 AM COMMERCIAL LITIGATION ATTORNEY Height 167.6 cm (5' 6 ) 03/31/2024 9:24 AM COMMERCIAL LITIGATION ATTORNEY Body Mass Index 17.87 03/31/2024 9:24 AM COMMERCIAL LITIGATION ATTORNEY Plan of Treatment Not on file Procedures Procedure Name Priority Date/Time Associated Diagnosis Comments DEXA SCAN Routine 08/21/2023 from Last 3 Months or Most Recently Relevant to Health Maintenance Results * DEXA SCAN (08/21/2023) Historical Provider HEALTH MAINTENANCE Final Result from Last 3 Months or Most Recently Relevant to Health Maintenance Insurance [facility] MEDIC[facility] ADVANTAGE [facility] Address: [facility] [address] [place] [address] [facility] MEDICARE ADVANTAGE Care Teams Die Trimmer Relationship Specialty Start Date End Date Samuel Wilson MD [address] [place] [address] PCP - General Family Medicine 03/31/24
== END 2024-09-26 10:28 | disposition home or self-care (01) ==
LOC: ANHIMG 10:30
PROVIDERS: PCP Family Medicine; Visit Provider Chiropractor
DX: Z12.31 Encounter for screening mammogram for malignant neoplasm of breast (principal)
CPT/HCPCS: 77063; 77067